=== PATIENT | female | born 1980 | race Caucasian/White ===

== ENCOUNTER 2018-10-28 17:51 | Inpatient (IN) | payer OTHER ==
[~2018-10-28] VITALS: Ht 165.1 cm; Wt 59.0 kg
[~2018-10-28 17:51] MED LIST: CEPHALEXIN 500500 M3 PO; HYDROCODONE-AP1 EAC6 PO; IBUPROFEN 800800 M1 PO
[2018-10-28 18:02] VITALS: BP 120/83
[2018-10-28 18:40] LABS: HEMATOCRIT 38.1 % (37.0-47.0); HEMOGLOBIN 13.1 gm/dL (12.0-15.0); MCH 32.2 pg (26.0-34.0); MCHC 34.3 g/dL (28.0-37.0); MCV 93.8 fL (80.0-100.0); MPV 8.5 fl. (7.2-11.1); NUCLEATED RBCS 0 /100WBC; PLATELET COUNT* 252 thou/uL (150-400); RBC 4.06 mil/uL (4.20-5.00); RDW-CV 13.5 % (10.5-14.5)
[2018-10-28 18:57] LABS: URINE BILIRUBIN NEGATIVE (Negative); URINE BLOOD 3+ (Negative); URINE CLARITY CLOUDY; URINE COLOR YELLOW; URINE GLUCOSE-RANDOM NEGATIVE (Negative); URINE KETONES NEGATIVE (Negative); URINE LEUKOCYTES-REFLEX 1+ (Negative); URINE NITRITE-REFLEX POSITIVE (Negative); URINE PROTEIN 2+ (Negative); URINE SPECIFIC GRAVITY >= 1.030 (1.005-1.030); URINE UROBILINOGEN 0.2 E.U./dl (0.2-1.0)
[2018-10-28 18:59] LABS: ANION GAP 9 mmol/L (7-16); BUN 13 mg/dL (7-18); CALCIUM 9.2 mg/dL (8.5-10.1); CHLORIDE 96 mmol/L (98-107); CO2 28 mmol/L (21-32); CREATININE 1.5 mg/dL (0.6-1.3); GLUCOSE 104 mg/dL (70-99); POTASSIUM 4.3 mmol/L (3.5-5.1); SODIUM 133 mmol/L (136-145); TROPONIN-I LEVEL <0.06 ng/mL (<0.06)
[2018-10-28 19:02] LABS: ABSOLUTE LYMPHOCYTES 0.9 thou/uL (0.8-5.3); ABSOLUTE MONOCYTES 1.1 thou/uL (0.0-1.2); ABSOLUTE NEUTROPHILS 13.1 thou/uL (1.6-8.1)
[2018-10-28 19:03] LABS: PLATELET ESTIMATE ADEQUATE
[2018-10-28 19:04] LABS: ALBUMIN 3.1 g/dL (3.4-5.0); ALKALINE PHOSPHATASE 123 U/L (46-116); LIPASE 70 U/L (73-393); SGOT 36 U/L (15-37); SGPT 52 U/L (30-65); TOTAL BILIRUBIN 0.7 mg/dL (<0.1-1.0); TOTAL PROTEIN 8.1 g/dL (6.4-8.2)
[2018-10-28 19:05] LABS: AMP/METHAMP POSITIVE (Negative); BARBITURATES Negative (Negative); BENZODIAZEPINES Negative (Negative); COCAINE Negative (Negative); METHADONE Negative (Negative); OPIATES Negative (Negative); PCP Negative (Negative); THC POSITIVE (Negative)
[2018-10-28 19:05] LABS: HYALINE CASTS 0-3 Few /LPF (None Seen); MUCUS None Seen strn/LPF (None Seen); SQUAMOUS >10 Many /LPF (0-3)
[2018-10-28 19:06] LABS: URINE WBC-REFLEX >25 Many /HPF (0-5)
[2018-10-28 19:07] LABS: BACTERIA-REFLEX >30 Many /HPF (None Seen); WBC CLUMPS Few (None Seen)
[2018-10-28 19:08] LABS: CRYSTALS None Seen /LPF (None Seen); URINE RBC 3-10 Few /HPF (0-2)
[2018-10-28 23:07] VITALS: BP 92/66
[2018-10-29 02:15] VITALS: BP 160/90
[2018-10-29 06:17] VITALS: BP 95/61
[2018-10-29 09:11] LABS: INFLUENZA A ANTIGEN None Detected (None Detect); INFLUENZA B ANTIGEN None Detected (None Detect)
--- NOTE | 2018-10-29 10:39 | EKG ---
[place] [address] ELECTROCARDIOGRAM REPORT Name: SUMAN TENORIO Room: [place] [address] ADM IN [facility].#: [id number] Admission: 10/28/18 Attend Phys: Agus Shah MD Discharge: Date of : 82 Report #: [id number] THIS REPORT FOR: //name// [facility] Test Date: 2018-10-28 Test Time: 18:00:50 Pat Name: SUMAN TENORIO Department: Room: [facility] Gender: F Linoleum Floor Layer: LEO : 1980 Requested By: Ming Fermin Order Number: [id number] MD: Rafiq Brown Measurements Intervals [place] Rate: 133 P: 74 NE: 119 QRS: 9 QRSD: 95 T: 58 QT: 291 QTc: 433 Interpretive Statements Sinus tachycardia LAE, consider biatrial enlargement No previous ECG available for comparison Electronically Signed On 10-29-2018 10:39:25 CDT by Rafiq Brown [email or web address] <ELECTRONICALLY SIGNED> By: Rafiq Brown MD, [facility] 10/29/18 1039 1800 1800 Rafiq Brown MD, FACC /EPI
[2018-10-29 11:47] VITALS: BP 112/63
[2018-10-29 15:53] VITALS: BP 109/70
[2018-10-29 18:01] VITALS: BP 98/63
--- NOTE | 2018-10-29 19:21 | NUR ---
PT ARRIVED ON UNIT AT 1450 FROM PACU. VITALS STABLE, CHARTED. A&Ox4. UP AD JERROD. DENIED PAIN. DENIED NAUSEA. IV IN L FA PATENT, INFUSING. URINE STRAINED, NO STONES FOUND. PT RESTING. CALL LIGHT IN PLACE.
[2018-10-29 19:30] VITALS: BP 104/71
[2018-10-30] VITALS: BP 95/62
[2018-10-30 04:00] VITALS: BP 91/58
--- NOTE | 2018-10-30 04:31 | NUR ---
PT REMAINED A&O X 4. VITALS, Sp02 STABLE. RESTING QUIETLY ON HOURLY ROUNDING. PAIN WELL MANAGED WITH MEDS. IV ANTIBIOTIC GIVEN ORDERED. NO NAUSEA OR VOMITING. URINE STRAINED. NO STONE SEEN. PT SLEEPING THROUGH THE NIGHT. CONTINUE TO MONITOR.
[2018-10-30 04:48] LABS: HEMATOCRIT 29.7 % (37.0-47.0); MCH 32.2 pg (26.0-34.0); MCHC 33.8 g/dL (28.0-37.0); MCV 95.5 fL (80.0-100.0); MPV 9.5 fl. (7.2-11.1); RBC 3.11 mil/uL (4.20-5.00); RDW-CV 14.3 % (10.5-14.5); WBC 10.9 thou/uL (4.0-11.0)
[2018-10-30 04:59] LABS: CALCIUM 8.6 mg/dL (8.5-10.1); CREATININE 0.9 mg/dL (0.6-1.3); MAGNESIUM 1.8 mg/dL (1.8-2.4); POTASSIUM 4.3 mmol/L (3.5-5.1)
[2018-10-30 07:30] VITALS: BP 108/77
[2018-10-30 14:51] VITALS: BP 115/76
--- NOTE | 2018-10-30 18:18 | NUR ---
ASSUMED CARE OF PATIENT AT APPROX 0730. ALERT AND ORIENTED X4. ASSESSMENT CONPLETED AND CHARTED. VSS ON ROOM AIR. NO COMPLAINTS OF NAUSEA OR SOA. PAIN HAS BEEN MANAGED WITH SCHEDULED TRAMADOL. FLUIDS AND ANTIBIOTICS INFUSED ORDERED. PATIENT SHOWERED THIS AFTERNOON. RESTED IN BED THROUGHOUT SHIFT. HOURLY ROUNDS COMPLETED, CALL LIGHT WITHIN REACH, NURSING WILL CONTINUE TO MONITOR.
[2018-10-30 19:55] VITALS: BP 115/73
[2018-10-31 01:00] VITALS: BP 133/80
[2018-10-31 04:30] LABS: HEMATOCRIT 31.5 % (37.0-47.0); HEMOGLOBIN 10.5 gm/dL (12.0-15.0); MCH 31.7 pg (26.0-34.0); MCHC 33.3 g/dL (28.0-37.0); MCV 95.2 fL (80.0-100.0); MPV 9.1 fl. (7.2-11.1); RBC 3.31 mil/uL (4.20-5.00); RDW-CV 14.8 % (10.5-14.5); WBC 14.5 thou/uL (4.0-11.0)
[2018-10-31 04:45] LABS: CALCIUM 8.3 mg/dL (8.5-10.1); MAGNESIUM 1.5 mg/dL (1.8-2.4); POTASSIUM 4.1 mmol/L (3.5-5.1)
[2018-10-31 05:12] VITALS: BP 108/62
--- NOTE | 2018-10-31 05:30 | NUR ---
PT REMAINED A&O X 4. VITALS, SpO2 STABLE. PAIN MANAGED BY MEDS. PT WAS RESTING QUIETLY ON HOURLY ROUNDING. IV ANTIBIOTIC GIVEN ORDERED. NO NAUSEA OR VOMITING. URINE STRAINED. WILL CONTINUE TO MONITOR.
[2018-10-31 07:50] VITALS: BP 118/74
[2018-10-31 17:13] VITALS: BP 138/89
--- NOTE | 2018-10-31 17:32 | NUR ---
ASSUMED CARE OF PATIENT AT APPROX 0730. ALERT AND ORIENTED X4. ASSESSMENT COMPLETED AND CHARTED. VSS ON ROOM AIR. FLUIDS INFUSED AND DISCONTINUED ORDERED. ANTIBIOTICS INFUSED AND MAGNESIUM GIVEN IV FOR REPLACEMENT PROTOCOL. NO COMPLAINTS OF NAUSEA OR SOA. PAIN HAS BEEN MANAGED WITH SCHEDULED TRAMADOL. STRAINING URINE FOR STONE, SENT POSSIBLE STONE TO LAB THIS AFTERNOON. PATIENT IS UP AD JERROD. CALL LIGHT WITHIN REACH AND NURSING WILL CONTINUE TO MONITOR.
[2018-10-31 20:00] VITALS: BP 122/78
[2018-11-01] VITALS: BP 111/72
--- NOTE | 2018-11-01 07:27 | NUR ---
Oriented x 4 but drowsy this shift. She had a elevated temp at start of shift and elevated pulse, also she stated she hadn't had a BM since 10/25. Dr Posada notified and orders recieved for IV fluids and milk of mag which was given last evening. She had 1 hydrocodone last evening and scheduled ultram x 2. She has slept well and temp is normal. She did state this morning that she was bleeding but there was just some blood tinged urine that is not unusual for kidney stone and also stent placement. Her mother was in the room and heard my response. I did also say they could ask the doctor when he made rounds. Patient's aunt called a few minutes ago asking about the patient and I referred her to call the patient b/c she is not on the authorized contact list.
[2018-11-01 07:40] VITALS: BP 127/84
[2018-11-01] MEDS ORDERED: TRAMADOL 50 MG50 MG PO (10:12)
[2018-11-01] MEDS ORDERED: HYDROCODON-ACE1 EAC7 PO (10:12)
[2018-11-01] MEDS ORDERED: FLOMAX0.4 MG PO (10:12)
[2018-11-01] MEDS ORDERED: LEVAQUIN 500 M500 M3 PO (10:13)
[2018-11-01 10:44] VITALS: BP 127/84
[2018-11-01 12:08] VITALS: BP 127/84
--- NOTE | 2018-11-01 12:08 | NUR ---
PT GIVEN DISCHARGE INFORMATION, PRESCRIPTIONS, CARE NOTES, AND WORK EXCUSE. IV REMOVED. PT GIVEN STRAINER FOR HOME. PT DENIED ANY FURTHER QUESTIONS AT THIS TIME. FALL RISK PRECAUTIONS IN PLACE. HOURLY ROUNDING COMPELTED. PT LEFT AMBULATORY WITH AUNT TO HOME.
--- NOTE | 2018-11-04 11:14 | OP ---
[address] [address] OPERATIVE REPORT Name: SUMAN TENORIO Room: [address] IN M.R.#: [id number] Admission: 10/28/18 Attend Phys: Agus Shah MD Discharge: 11/01/18 Date of : 82 Report #: [id number] THIS REPORT FOR: //name// CC: Agus Shha [facility] physician/PCP DATE OF SERVICE: 10/29/2018 INDICATION FOR PROCEDURE: The patient is a 38-year-old female who was admitted through the Emergency Department with febrile urinary tract infection, associated with severe right-sided flank pain. Evaluation with CT scan revealed a 1-2 mm right distal ureteral calculus with obstruction. Due to her evidence of right pyelonephritis associated with an obstructing ureteral calculus, she presents for cystoscopy with right stent placement to drain the right kidney and facilitate clearing of the infection with the IV antibiotics. PREOPERATIVE DIAGNOSES: 1. Febrile urinary tract infection. 2. Right ureteral calculus. POSTOPERATIVE DIAGNOSES: 1. Febrile urinary tract infection. 2. Right ureteral calculus. PROCEDURE: Cystoscopy, right double-J stent placement. SURGEON: Rafiq Kaufman MD ANESTHESIA: General. COMPLICATIONS: None. ESTIMATED BLOOD LOSS: None. PROCEDURE IN DETAIL: The patient was consented for the above procedure. She was given broad-spectrum IV antibiotics preoperatively. She was tachycardic and febrile when she was wheeled back to the operating suite. She was given general anesthetic. She was placed in a dorsal lithotomy position, prepped and draped in usual sterile fashion over the genitalia. Cystoscopy was performed with a 21-[place] Islander sheath and 30 degree lens, which revealed no evidence of stones, ulcerations or tumors within the bladder itself. The right ureteral orifice was markedly inflamed, making cannulation difficult. I was able to cannulate the ureter using the combination of a 5-[place] Islander Pollack catheter and a guidewire. Once I got the wire into the distal ureter, level of the stone, a marked amount of purulent drainage was noted. Based on that, I elected not to perform ureteroscopic stone extraction. I passed the guidewire [place] [address] OPERATIVE REPORT Name: SUMAN TENORIO Room: [address] [place] ..#: [id number] Admission: 10/28/18 Attend Phys: Agus Shah MD Discharge: 11/01/18 Date of : 82 Report #: [id number] right renal pelvis and then passed a 4.8 x 26 double-J stent over the wire, with good curl noted in the renal pelvis and the bladder after removing the wire. This was confirmed with fluoroscopy and cystoscopy. Upon drainage of the kidney, purulent drainage continued. The patient tolerated the procedure very well. The bladder was drained, scope was removed and a lidocaine jelly was placed per urethra for local anesthesia. Her vital signs improved with hydration and with the procedure itself. She will be treated with a full course of IV antibiotics and leave the stent for at least 7-10 days. <ELECTRONICALLY SIGNED> By: Kashmir Villegas MD 11/04/18 1114 1311 [id number] Kaufman MD /nt
== END 2018-11-01 12:09 | disposition home or self-care (01) | DRG 853 ==
LOC: M.ERS 17:51 → M.TBA-ER 20:23 → M.ORTHSURG 10-29 14:57
PROVIDERS: Emergency Medicine Emergency Medical Services; Internal Medicine; ADMIT Internal Medicine
PROC: 0T738DZ Dilation of Right Kidney Pelvis with Intraluminal Device, Via Natural or Artificial Opening Endoscopic (ICD-10-PCS; principal; 2018-10-29)
DX: A41.51 Sepsis due to Escherichia coli [E. coli] (principal); J15.9 Unspecified bacterial pneumonia; N13.6 Pyonephrosis; N28.9 Disorder of kidney and ureter, unspecified; F12.90 Cannabis use, unspecified, uncomplicated; Z16.11 Resistance to penicillins; Z16.29 Resistance to other single specified antibiotic; F15.90 Other stimulant use, unspecified, uncomplicated; F17.210 Nicotine dependence, cigarettes, uncomplicated; Z72.89 Other problems related to lifestyle

== ENCOUNTER 2018-11-04 01:35 | Emergency (ER) | payer OTHER ==
[~2018-11-04] VITALS: Ht 165.1 cm; Wt 59.0 kg
[~2018-11-04 01:35] MED LIST changes: +FLOMAX0.4 MG PO; +HYDROCODON-ACE1 EAC7 PO; +LEVAQUIN 500 M500 M3 PO; +TRAMADOL 50 MG50 MG PO
[2018-11-04 01:43] VITALS: BP 143/93
== END 2018-11-04 02:00 | disposition home or self-care (01) ==
LOC: M.ERS 01:35
DX: I80.8 Phlebitis and thrombophlebitis of other sites (principal); F17.200 Nicotine dependence, unspecified, uncomplicated

== ENCOUNTER 2020-06-07 00:19 | Emergency (ER) | payer OTHER ==
[~2020-06-07] VITALS: Ht 160 cm; Wt 61.2 kg
[2020-06-07] MEDS ORDERED: DOXYCYCLINE 10100 M2 PO (00:29)
[2020-06-07 00:41] VITALS: BP 146/90
== END 2020-06-07 00:42 | disposition home or self-care (01) ==
LOC: M.ERS 00:19
DX: L03.113 Cellulitis of right upper limb (principal); Z88.8 Allergy status to other drugs, medicaments and biological substances; Z87.442 Personal history of urinary calculi